=== PATIENT | male | born 1975 | race Caucasian/White ===

== ENCOUNTER 2023-05-18 21:40 | Emergency (ER) | payer OTHER ==
[2023-05-18] VITALS (7 sets, daily range): BP systolic 117–140; BP diastolic 78–107
[~2023-05-18] VITALS: Ht 167.6 cm; Wt 63.5 kg
[~2023-05-18 21:40] MED LIST: FLEXERIL OR; NO HOME MEDS; ULTRAM50 M1 PO
[2023-05-18 22:22] LABS: BASO% 1.2 % (0-3); EOS% 1.4 % (0-8); HEMATOCRIT 42.2 % (39.0-50.0); IMMATURE GRANULOCYTES 0.2 % (0.0-5.0); LYMPH% 31.2 % (15-41); MEAN CELL VOLUME 95.5 fL CALC (80.0-100.0); MEAN CORPUSCULAR HGB 33.9 pG CALC (26.0-32.0); MEAN CORPUSCULAR HGB CONC 35.5 g/dL CAL (32.0-36.0); MONO% 8.1 % (2-13); NEUT# 5.12 thou/uL (1.82-7.42); NEUT% 57.9 % (42-76); RED BLOOD COUNT 4.42 mill/uL (4.70-6.10); RED CELL DISTRI WIDTH 11.6 % (11.5-15.5)
[2023-05-18 22:35] LABS: ALBUMIN 4.7 g/dL (3.2-5.0); ALKALINE PHOSPHATASE 69 u/l (38-126); BILIRUBIN, TOTAL 0.4 mg/dL (0.2-1.3); BUN 7 mg/dL (9-20); BUN/CREATININE RATIO 9 (12-20 (CALC)); CHLORIDE 102 mmol/l (95-108); CREATININE 0.7 mg/dL (0.7-1.3); GFR FOR AFR.AMER. > 60 ML/MIN (>=60 (CALC)); GFR OTHER RACES > 60 ML/MIN (>=60 (CALC)); POTASSIUM 3.6 mmol/l (3.5-5.1); SGOT/AST 40 u/l (17-59); SODIUM 137 mmol/l (137-146); TOTAL PROTEIN 7.8 g/dL (6.3-8.2)
[2023-05-18 22:44] LABS: ANION GAP 21 (6-22 (CALC)); CARBON DIOXIDE 18 mmol/l (22-30)
[2023-05-18 22:45] LABS: ETHYL ALCOHOL 456 mg/dl (0-30)
[2023-05-18 23:00] LABS: URINE BILIRUBIN - DIPSTICK Negative (NEGATIVE); URINE BLOOD DIPSTICK Trace-lysed (NEGATIVE); URINE GLUCOSE - DIPSTICK Negative (NEGATIVE); URINE KETONE Trace mg/dL (NEGATIVE); URINE LEUK ESTERASE Negative (NEGATIVE); URINE NITRITE - DIPSTICK Negative (Negative); URINE PROTEIN - DIPSTICK Negative (NEG-TRACE); URINE UROBILINOGEN - DIPSTICK 0.2 E.U./dL (0.2)
[2023-05-18 23:02] LABS: URINE COLOR Yellow
== END 2023-05-18 23:33 | disposition home or self-care (01) | DRG 897 ==
LOC: ED 21:40
PROVIDERS: Family Medicine
DX: F10.129 Alcohol abuse with intoxication, unspecified (principal); Y90.8 Blood alcohol level of 240 mg/100 ml or more; F17.200 Nicotine dependence, unspecified, uncomplicated